=== PATIENT | male | born 1965 | race Caucasian/White ===

== ENCOUNTER → 2022-07-15 10:32 | Outpatient (CLI) | payer BC, SELFPAY ==
--- NOTE | ~2022-07-15 | XR_ITS ---
XR chest 2V DATE: 07/15/2022 10:44 INDICATION: Nicotine dependence TECHNIQUE: 2 views COMPARISON: 01/21/2010 PA and lateral chest FINDINGS: There is bilateral hyperinflation with increased retrosternal airspace and flattening the d iaphragm consistent with prominent COPD. No pulmonary infiltrate or consolidation, pleural effusion o r pulmonary vascular congestion or pneumothorax is detected. Heart size is within normal range. No hilar or mediastinal enlargement. IMPRESSION: COPD Reviewed, dictated and finalized at location A. [employer] IMPRESSION: COPD
== END ==
PROVIDERS: PCP Family Medicine Adolescent Medicine; Visit Provider Physician Assistant
DX: Z87.891 Personal history of nicotine dependence (principal); J44.9 Chronic obstructive pulmonary disease, unspecified
CPT/HCPCS: 71046